=== PATIENT | female | born 1965 | race Caucasian/White ===

== ENCOUNTER 2024-05-27 11:47 | Inpatient (IN) ==
[2024-05-27] MEDS: Lactated Ringers 1000 ml BAG IV.FLUID IV ONE (13:01)
[2024-05-27] MEDS: Cefepime 2 GM in Dextrose 2 GM/50 ML BAG IV ONE (13:01)
[2024-05-27 13:08] LABS: ABS Basophils 0.1 10^3/uL (0.0-0.1); ABS Eosinophils 0.2 10^3/uL (0.0-0.5); ABS Lymphocytes 1.8 10^3/uL (1.0-4.8); ABS Monocytes 0.7 10^3/uL (0.0-0.9); ABS Neutrophils 10.2 10^3/uL (1.5-7.6); ABS Nucleated RBC 0.01 10^3/ul; Eosinophil % 1.7 %; Hematocrit 28.5 % (35-45); Hemoglobin 9.4 g/dL (11.5-14.3); Mean Corpuscular Hemoglobin 28.3 pg (27-33); Mean Corpuscular Volume 85.8 fL (80-97); Mean Platelet Volume 8.3 fL (7.5-11.2); Nucleated Red Blood Cells % 0.1 %/100WBC (0.0-0.8); Platelet Count 261 10^3/uL (150-450); Red Blood Count 3.32 10^6/uL (3.63-4.92); Red Cell Distribution Width 17.1 % (12-17); White Blood Count 13.1 10^3/uL (3.8-11.8)
[2024-05-27 13:18] LABS: Activated Partial Thrombo Time 30.9 seconds (26.0-38.0); INR 1.23 (0.83-1.13)
[2024-05-27 14:00] LABS: Albumin 2.9 g/dL (3.2-5.2); Albumin/Globulin Ratio 0.7 (1-3); C Reactive Protein 181.62 mg/L (<8.01); Calcium 8.8 mg/dL (8.6-10.3); Creatinine, Serum 1.09 mg/dL (0.51-0.95); Potassium 3.8 mmol/L (3.5-5.0); Total Bilirubin 0.5 mg/dL (0.2-1.0); Total Protein 6.9 g/dL (6.4-8.9); eGFR CKD-EPI 59.6 (>60)
[2024-05-27 14:33] LABS: High Sensitivity Troponin 1 Hr 10 pg/mL (<15)
[2024-05-27] MEDS ORDERED: Zosyn per Pharmacy NOTE FOLLOW UP SCH (17:00)
[2024-05-27] MEDS: Piperacillin/Tazobac 3.375 BAG 3.375 GM/100 ML BAG IV ONE (17:28)
[2024-05-27] MEDS ORDERED: Ondansetron ODT 4 mg TAB 4 MG TAB PO PRN (18:27)
[2024-05-27] MEDS ORDERED: NF: Trospium 20 mg TAB (NF) PO PRN (18:27)
[2024-05-27] MEDS: Senna TAB 8.6 mg TAB PO SCH (22:44)
[2024-05-27] MEDS: Heparin 5000 UNITS/ML 1 mL VIAL SUBCUT SCH (22:45)
[2024-05-27] MEDS: ZOSYN 3.375 GM Q8H per EXTENDED INFUSION IV SCH (23:21)
[2024-05-28 03:05] LABS: Osmolality Serum 269 mOsm/kg (275-295)
[2024-05-28 03:06] LABS: Urine Osmo 312 mOsm/kg (150-1150)
[2024-05-28] MEDS: ZOSYN 3.375 GM Q8H per EXTENDED INFUSION IV SCH (06:22)
[2024-05-28] MEDS: Lidocaine PATCH 5% PATCH TRANSDERM SCH (08:58)
[2024-05-28] MEDS: Venlafaxine XR 75 mg PO SCH (09:09)
[2024-05-28 12:44] LABS: ABS Basophils 0.1 10^3/uL (0.0-0.1); ABS Eosinophils 0.3 10^3/uL (0.0-0.5); ABS Lymphocytes 1.5 10^3/uL (1.0-4.8); ABS Monocytes 0.5 10^3/uL (0.0-0.9); Eosinophil % 2.4 %; Hematocrit 26.4 % (35-45); Hemoglobin 8.6 g/dL (11.5-14.3); Lymphocyte % 11.9 %; Mean Corpuscular Hemoglobin 28.3 pg (27-33); Mean Corpuscular Hgb Conc 32.6 g/dL (31-36); Mean Corpuscular Volume 86.6 fL (80-97); Mean Platelet Volume 8.4 fL (7.5-11.2); Platelet Count 231 10^3/uL (150-450); Red Blood Count 3.04 10^6/uL (3.63-4.92); Red Cell Distribution Width 17.3 % (12-17); White Blood Count 12.3 10^3/uL (3.8-11.8)
[2024-05-28 13:11] LABS: % Iron Saturation 12 % (15-55); .Transferrin 123 mg/dL (203-362); Anion Gap 8 mmol/L (2-16); Blood Urea Nitrogen 16 mg/dL (6-24); CO2 Carbon Dioxide 24 mmol/L (22-32); Calcium 8.4 mg/dL (8.6-10.3); Chloride 100 mmol/L (101-111); Creatinine, Serum 1.12 mg/dL (0.51-0.95); Glucose 109 mg/dL (70-100); Iron < 20 ug/dL (50-212); Magnesium 1.5 mg/dL (1.9-2.7); Phosphorus 4.5 mg/dL (2.5-5.0); Potassium 3.7 mmol/L (3.5-5.0); Sodium 132 mmol/L (135-145); Total Iron Binding Capacity 172 mcg/dL (250-450); Unsaturated Iron Binding 152 ug/dL; eGFR CKD-EPI 57.7 (>60)
[2024-05-28 13:32] LABS: Ferritin 949.2 ng/mL (11-307)
[2024-05-28 13:35] LABS: Folate 10.99 ng/mL (5.90-24.80)
[2024-05-28 13:36] LABS: Vitamin B12 658 pg/mL (180-914)
[2024-05-28] MEDS: Magnesium Sulfate 2 gm BAG 2 GM/50 ML BAG IVPB ONE (16:47)
[2024-05-28 16:58] LABS: Urine Appearance Clear; Urine Bacteria 1+ /HPF (Absent); Urine Bilirubin Negative (Negative); Urine Blood 3+ (Negative); Urine Glucose Negative (Negative); Urine Ketones Negative (Negative); Urine Nitrite Negative (Negative); Urine Protein 1+ (>=30 mg/dL) (Negative); Urine Red Blood Cell 3+(>10/hpf) /HPF (0-Trace); Urine Specific Gravity >1.050 (1.002-1.030); Urine Urobilinogen Negative (Negative); Urine White Blood Cell 3+(>20/hpf) /HPF (0-Trace); Urine pH 6.5 (5.0-8.0)
[2024-05-28 17:00] LABS: Urine Appearance Clear; Urine Bacteria Absent /HPF (Absent); Urine Bilirubin Negative (Negative); Urine Blood 3+ (Negative); Urine Glucose Negative (Negative); Urine Ketones Negative (Negative); Urine Nitrite Negative (Negative); Urine Protein 2+ (>=100 mg/dL) (Negative); Urine Red Blood Cell 3+(>10/hpf) /HPF (0-Trace); Urine Specific Gravity >1.050 (1.002-1.030); Urine Urobilinogen Negative (Negative); Urine White Blood Cell 1+(6-10/hpf) /HPF (0-Trace)
[2024-05-28] MEDS ORDERED: Enoxaparin 60 MG/0.6 ML SYR SUBCUT SCH (17:00)
[2024-05-28] MEDS: Magnesium Sulfate IV 1GM/100ML 1 GM/100 ML BAG IV ONE (17:59)
[2024-05-28 18:34] LABS: Urine Color Light-Red
[2024-05-28 18:34] LABS: Urine Color Light-Red
[2024-05-28] MEDS: fentaNYL 250 mcg/5 ml 50 MCG/ML 5 ml VIAL (250 MCG) ONE (19:57)
[2024-05-29] MEDS: Enoxaparin 60 MG/0.6 ML SYR SUBCUT SCH (06:09)
[2024-05-29 06:34] LABS: ABS Eosinophils 0.3 10^3/uL (0.0-0.5); ABS Lymphocytes 1.6 10^3/uL (1.0-4.8); ABS Monocytes 0.5 10^3/uL (0.0-0.9); ABS Neutrophils 8.6 10^3/uL (1.5-7.6); ABS Nucleated RBC 0.01 10^3/ul; Eosinophil % 2.7 %; Hematocrit 24.7 % (35-45); Hemoglobin 8.2 g/dL (11.5-14.3); Lymphocyte % 14.7 %; Mean Corpuscular Hemoglobin 28.7 pg (27-33); Mean Corpuscular Hgb Conc 33.2 g/dL (31-36); Mean Corpuscular Volume 86.4 fL (80-97); Mean Platelet Volume 8.3 fL (7.5-11.2); Platelet Count 231 10^3/uL (150-450); Red Blood Count 2.86 10^6/uL (3.63-4.92); Red Cell Distribution Width 17.7 % (12-17); White Blood Count 11.1 10^3/uL (3.8-11.8)
[2024-05-29 06:41] LABS: INR 1.29 (0.83-1.13)
[2024-05-29 06:50] LABS: Calcium 8.1 mg/dL (8.6-10.3); Creatinine, Serum 1.07 mg/dL (0.51-0.95); Magnesium 2.2 mg/dL (1.9-2.7); Potassium 3.8 mmol/L (3.5-5.0)
[2024-05-29] MEDS: Acetaminophen IV 1 GM/100ML 1,000 MG/100 ML BAG IV PRN (13:02)
[2024-05-30 07:19] LABS: Creatinine, Serum 1.2 mg/dL (0.51-0.95); Potassium 4.2 mmol/L (3.5-5.0); eGFR CKD-EPI 53.1 (>60)
[2024-05-30 07:29] LABS: ABS Basophils 0.1 10^3/uL (0.0-0.1); ABS Eosinophils 0.4 10^3/uL (0.0-0.5); ABS Lymphocytes 1.9 10^3/uL (1.0-4.8); ABS Monocytes 0.4 10^3/uL (0.0-0.9); ABS Neutrophils 7.2 10^3/uL (1.5-7.6); ABS Nucleated RBC 0.01 10^3/ul; Eosinophil % 4.1 %; Hematocrit 23.2 % (35-45); Hemoglobin 7.8 g/dL (11.5-14.3); Mean Corpuscular Hemoglobin 29.5 pg (27-33); Mean Corpuscular Hgb Conc 33.8 g/dL (31-36); Mean Corpuscular Volume 87.3 fL (80-97); Mean Platelet Volume 8.7 fL (7.5-11.2); Nucleated Red Blood Cells % 0.1 %/100WBC (0.0-0.8); Platelet Count 243 10^3/uL (150-450); Red Blood Count 2.66 10^6/uL (3.63-4.92); Red Cell Distribution Width 17.8 % (12-17); White Blood Count 10.1 10^3/uL (3.8-11.8)
[2024-05-30 13:42] VITALS: BP 110/70
== END 2024-05-30 13:56 | disposition home health service (06) | DRG 720 ==
LOC: ED 11:47 → SUATTDRO 19:02 → EDHOLD 19:02 → MEDTELE 05-28 04:21
PROVIDERS: ADMIT Internal Medicine; ATTEND Hospitalist

== ENCOUNTER 2024-06-14 18:49 | Inpatient (IN) ==
[2024-06-14 20:46] LABS: Urine Appearance Turbid; Urine Bilirubin Negative (Negative); Urine Blood 1+ (Negative); Urine Color Yellow; Urine Glucose Negative (Negative); Urine Ketones Negative (Negative); Urine Nitrite 1+ (Negative); Urine Protein 2+ (>=100 mg/dL) (Negative); Urine Specific Gravity 1.014 (1.002-1.030); Urine Urobilinogen Negative (Negative); Urine pH 7.5 (5.0-8.0)
[2024-06-14 20:47] LABS: ABS Basophils 0.1 10^3/uL (0.0-0.1); ABS Eosinophils 0.2 10^3/uL (0.0-0.5); ABS Lymphocytes 2.2 10^3/uL (1.0-4.8); ABS Monocytes 1.2 10^3/uL (0.0-0.9); ABS Nucleated RBC 0.01 10^3/ul; Eosinophil % 1.2 %; Hematocrit 27.2 % (35-45); Lymphocyte % 16.4 %; Mean Corpuscular Hemoglobin 28.7 pg (27-33); Mean Corpuscular Hgb Conc 33.2 g/dL (31-36); Mean Corpuscular Volume 86.3 fL (80-97); Mean Platelet Volume 7.1 fL (7.5-11.2); Platelet Count 415 10^3/uL (150-450); Red Blood Count 3.15 10^6/uL (3.63-4.92); Red Cell Distribution Width 19.2 % (12-17); White Blood Count 13.7 10^3/uL (3.8-11.8)
[2024-06-14] MEDS: Lactated Ringers 1000 ml BAG 1,000 ML IV ONE ×2 (20:48→22:10)
[2024-06-14 20:52] LABS: Urine Bacteria Absent /HPF (Absent); Urine Red Blood Cell 3+(>10/hpf) /HPF (0-Trace); Urine White Blood Cell 3+(>20/hpf) /HPF (0-Trace)
[2024-06-14 21:07] LABS: Albumin 3.2 g/dL (3.2-5.2); Albumin/Globulin Ratio 0.8 (1-3); C Reactive Protein 359.43 mg/L (<8.01); Calcium 8.9 mg/dL (8.6-10.3); Creatinine, Serum 2.24 mg/dL (0.51-0.95); Globulin 3.9 g/dL (2-4); Potassium 4.3 mmol/L (3.5-5.0); Total Bilirubin 0.4 mg/dL (0.2-1.0); Total Protein 7.1 g/dL (6.4-8.9); eGFR CKD-EPI 25.1 (>60)
[2024-06-14 21:36] LABS: Activated Partial Thrombo Time 29.5 seconds (26.0-38.0); INR 1.24 (0.83-1.13)
[2024-06-14] MEDS: Cefepime 2 GM in Dextrose 2 GM/50 ML BAG IV ONE (22:07)
[2024-06-14 22:42] LABS: High Sensitivity Troponin 1 Hr 13 pg/mL (<15)
[2024-06-15] MEDS: Morphine 4 MG/ML VIAL (1 ml) IV ONE (00:10)
[2024-06-15] MEDS: Acetaminophen IV 1 GM/100ML 1,000 MG/100 ML BAG IV ONE (00:34)
[2024-06-15] MEDS ORDERED: Ondansetron ODT 4 mg TAB 4 MG TAB PO PRN (03:33)
[2024-06-15 04:51] LABS: Urine Osmo 237 mOsm/kg (150-1150)
[2024-06-15 04:52] LABS: Osmolality Serum 270 mOsm/kg (275-295)
[2024-06-15] MEDS ORDERED: TROSPIUM 20 MG PO PRN (06:14)
[2024-06-15 06:36] LABS: ABS Basophils 0.1 10^3/uL (0.0-0.1); ABS Eosinophils 0.3 10^3/uL (0.0-0.5); ABS Lymphocytes 2.2 10^3/uL (1.0-4.8); ABS Monocytes 1.1 10^3/uL (0.0-0.9); ABS Neutrophils 8.7 10^3/uL (1.5-7.6); ABS Nucleated RBC 0.02 10^3/ul; Eosinophil % 2.7 %; Hematocrit 25.7 % (35-45); Hemoglobin 8.6 g/dL (11.5-14.3); Lymphocyte % 17.5 %; Mean Corpuscular Hemoglobin 28.9 pg (27-33); Mean Corpuscular Hgb Conc 33.4 g/dL (31-36); Mean Corpuscular Volume 86.5 fL (80-97); Mean Platelet Volume 7.3 fL (7.5-11.2); Nucleated Red Blood Cells % 0.1 %/100WBC (0.0-0.8); Platelet Count 357 10^3/uL (150-450); Red Blood Count 2.97 10^6/uL (3.63-4.92); Red Cell Distribution Width 19.5 % (12-17); White Blood Count 12.3 10^3/uL (3.8-11.8)
[2024-06-15 07:00] LABS: Albumin 2.8 g/dL (3.2-5.2); Albumin/Globulin Ratio 0.8 (1-3); Creatinine, Serum 1.62 mg/dL (0.51-0.95); Globulin 3.4 g/dL (2-4); Potassium 4.4 mmol/L (3.5-5.0); Total Bilirubin 0.3 mg/dL (0.2-1.0); Total Protein 6.2 g/dL (6.4-8.9); eGFR CKD-EPI 37.1 (>60)
[2024-06-15] MEDS: Lidocaine PATCH 5% PATCH TRANSDERM SCH (07:15)
[2024-06-15] MEDS: Venlafaxine XR 75 mg PO SCH (08:08)
[2024-06-15] MEDS: Lactated Ringers 1000 ml BAG 500 ML IV ONE (08:09)
[2024-06-15] MEDS: Lactated Ringers 1000 ml BAG 1,000 ML IV SCH (08:50)
[2024-06-15] MEDS ORDERED: Lidocaine 2.5%/Prilocain 2.5% 5 GM TUBE TOPICAL PRN (09:00)
[2024-06-15] MEDS: Cefepime 1 GM in Dextrose 1 GM/50 ML BAG IV SCH (10:28)
[2024-06-15] MEDS ORDERED: Vancomycin per Pharmacy 1 EA NOTE FOLLOW UP PRN (11:11)
[2024-06-15] MEDS: Vancomycin 1,000 MG in NS 0.9% 250 ml 250 ML IVPB ONE (11:58)
[2024-06-15] MEDS: HYDROmorphone 0.5 MG/0.5 ML SYRINGE IV PRN (11:58)
[2024-06-15] MEDS: cefTRIAXone 2 gm/50 mL D5W 2 GM/50 ML BAG IV SCH (17:01)
[2024-06-15] MEDS: Senna TAB 8.6 mg TAB PO SCH (19:55)
[2024-06-16 08:26] LABS: ABS Basophils 0.1 10^3/uL (0.0-0.1); ABS Eosinophils 0.4 10^3/uL (0.0-0.5); ABS Lymphocytes 1.6 10^3/uL (1.0-4.8); ABS Neutrophils 6.5 10^3/uL (1.5-7.6); Eosinophil % 4.5 %; Hematocrit 24.9 % (35-45); Hemoglobin 8.5 g/dL (11.5-14.3); Mean Corpuscular Hemoglobin 29.5 pg (27-33); Mean Corpuscular Hgb Conc 34.1 g/dL (31-36); Mean Corpuscular Volume 86.5 fL (80-97); Mean Platelet Volume 7.4 fL (7.5-11.2); Platelet Count 338 10^3/uL (150-450); Red Blood Count 2.87 10^6/uL (3.63-4.92); Red Cell Distribution Width 19.6 % (12-17); White Blood Count 9.6 10^3/uL (3.8-11.8)
[2024-06-16 08:49] LABS: Calcium 8.6 mg/dL (8.6-10.3); Creatinine, Serum 1.42 mg/dL (0.51-0.95); Potassium 4.2 mmol/L (3.5-5.0); eGFR CKD-EPI 43.4 (>60)
[2024-06-16] MEDS: Vancomycin Random Level NOTE FOLLOW UP ONE (11:11)
[2024-06-16] MEDS: Lactated Ringers 1000 ml BAG 1,000 ML IV ONE (12:18)
[2024-06-16 16:14] LABS: Calcium 8.4 mg/dL (8.6-10.3); Creatinine, Serum 1.58 mg/dL (0.51-0.95); Potassium 4.7 mmol/L (3.5-5.0); eGFR CKD-EPI 38.2 (>60)
[2024-06-16 23:40] LABS: Calcium 8.3 mg/dL (8.6-10.3); Creatinine, Serum 1.47 mg/dL (0.51-0.95); Potassium 4.5 mmol/L (3.5-5.0); eGFR CKD-EPI 41.6 (>60)
[2024-06-17] MEDS: cefTRIAXone 2 gm/50 mL D5W 2 GM/50 ML BAG IV ONE (09:48)
[2024-06-17] MEDS: Lactated Ringers 1000 ml BAG 1,000 ML IV SCH (12:09)
[2024-06-17] MEDS: fentaNYL 250 mcg/5 ml 50 MCG/ML 5 ml VIAL (250 MCG) ONE (14:38)
[2024-06-17 16:05] LABS: ABS Eosinophils 0.4 10^3/uL (0.0-0.5); ABS Lymphocytes 2.6 10^3/uL (1.0-4.8); ABS Monocytes 0.7 10^3/uL (0.0-0.9); ABS Neutrophils 3.8 10^3/uL (1.5-7.6); Eosinophil % 5.3 %; Hematocrit 22.3 % (35-45); Hemoglobin 7.3 g/dL (11.5-14.3); Mean Corpuscular Hemoglobin 28.7 pg (27-33); Mean Platelet Volume 7.6 fL (7.5-11.2); Platelet Count 276 10^3/uL (150-450); Red Blood Count 2.56 10^6/uL (3.63-4.92); Red Cell Distribution Width 19.6 % (12-17); White Blood Count 7.5 10^3/uL (3.8-11.8)
[2024-06-17 16:28] LABS: Calcium 8.2 mg/dL (8.6-10.3); Creatinine, Serum 1.25 mg/dL (0.51-0.95); Magnesium 1.2 mg/dL (1.9-2.7); Potassium 4.8 mmol/L (3.5-5.0); eGFR CKD-EPI 50.6 (>60)
[2024-06-17 16:40] LABS: INR 1.04 (0.83-1.13)
[2024-06-17] MEDS: ceFAZolin 1 GM in Dextrose 1 GM/50 ML BAG IVPB SCH ×2 (17:45→23:52)
[2024-06-17] MEDS: Magnesium Sulf 4 GM/100 ML IV 4,000 MG/100 ML BAG IVPB ONE (20:16)
[2024-06-17 20:39] LABS: Hematocrit 21.5 % (35-45); Hemoglobin 7.3 g/dL (11.5-14.3)
[2024-06-17] MEDS: Morphine 2 MG/ML SYRINGE IV ONE (23:27)
[2024-06-18 06:39] LABS: ABS Basophils 0.1 10^3/uL (0.0-0.1); ABS Eosinophils 0.5 10^3/uL (0.0-0.5); ABS Lymphocytes 2.3 10^3/uL (1.0-4.8); ABS Monocytes 0.7 10^3/uL (0.0-0.9); ABS Neutrophils 5.1 10^3/uL (1.5-7.6); ABS Nucleated RBC 0.01 10^3/ul; Eosinophil % 6.1 %; Hematocrit 22.8 % (35-45); Hemoglobin 7.6 g/dL (11.5-14.3); Lymphocyte % 26.1 %; Mean Corpuscular Hemoglobin 29.1 pg (27-33); Mean Corpuscular Hgb Conc 33.4 g/dL (31-36); Mean Corpuscular Volume 87.1 fL (80-97); Mean Platelet Volume 7.5 fL (7.5-11.2); Nucleated Red Blood Cells % 0.1 %/100WBC (0.0-0.8); Platelet Count 303 10^3/uL (150-450); Red Blood Count 2.62 10^6/uL (3.63-4.92); Red Cell Distribution Width 19.4 % (12-17); White Blood Count 8.8 10^3/uL (3.8-11.8)
[2024-06-18 06:53] LABS: Calcium 8.7 mg/dL (8.6-10.3); Creatinine, Serum 1.24 mg/dL (0.51-0.95); Magnesium 2.5 mg/dL (1.9-2.7); Potassium 4.1 mmol/L (3.5-5.0); eGFR CKD-EPI 51.1 (>60)
[2024-06-19 14:48] VITALS: BP 131/77
[2024-06-19 15:15] LABS: Hematocrit 23.1 % (35-45); Hemoglobin 7.5 g/dL (11.5-14.3); Mean Corpuscular Hemoglobin 28.4 pg (27-33); Mean Corpuscular Hgb Conc 32.3 g/dL (31-36); Mean Platelet Volume 7.9 fL (7.5-11.2); Platelet Count 334 10^3/uL (150-450); Red Blood Count 2.63 10^6/uL (3.63-4.92); Red Cell Distribution Width 20.1 % (12-17); White Blood Count 8.7 10^3/uL (3.8-11.8)
[2024-06-19 15:24] LABS: Calcium 9.2 mg/dL (8.6-10.3); Creatinine, Serum 1.48 mg/dL (0.51-0.95); Magnesium 2.1 mg/dL (1.9-2.7); Potassium 4.3 mmol/L (3.5-5.0); eGFR CKD-EPI 41.3 (>60)
[2024-06-19 15:39] LABS: ABS Basophils 0.1 10^3/uL (0.0-0.1); ABS Eosinophils 0.5 10^3/uL (0.0-0.5); ABS Lymphocytes 2.6 10^3/uL (1.0-4.8); ABS Monocytes 0.8 10^3/uL (0.0-0.9); ABS Neutrophils 4.7 10^3/uL (1.5-7.6); ABS Nucleated RBC 0.01 10^3/ul; Eosinophil % 5.7 %; Nucleated Red Blood Cells % 0.1 %/100WBC (0.0-0.8)
[2024-06-19 15:40] LABS: RBC Morphology Normal (Normal); Smudge Cells Present
== END 2024-06-19 16:07 | disposition home or self-care (01) | DRG 720 ==
LOC: ED 18:49 → EDHOLD 18:49 → SUATTDRO 06-15 03:09 → MEDTELE 06-15 16:51
PROVIDERS: ADMIT Internal Medicine; ATTEND Hospitalist

== ENCOUNTER 2024-11-21 15:25 | Inpatient (IN) ==
[2024-11-21 17:41] LABS: ABS Basophils 0.1 10^3/uL (0.0-0.1); ABS Eosinophils 1.3 10^3/uL (0.0-0.5); ABS Lymphocytes 3.7 10^3/uL (1.0-4.8); ABS Monocytes 0.8 10^3/uL (0.0-0.9); ABS Neutrophils 2.6 10^3/uL (1.5-7.6); ABS Nucleated RBC 0.01 10^3/ul; Eosinophil % 15.3 %; Hematocrit 23.1 % (35-45); Hemoglobin 7.5 g/dL (11.5-14.3); Lymphocyte % 43.8 %; Mean Corpuscular Hemoglobin 29.2 pg (27-33); Mean Corpuscular Hgb Conc 32.4 g/dL (31-36); Mean Corpuscular Volume 90.1 fL (80-97); Mean Platelet Volume 8.3 fL (7.5-11.2); Nucleated Red Blood Cells % 0.1 %/100WBC (0.0-0.8); Platelet Count 472 10^3/uL (150-450); Red Blood Count 2.56 10^6/uL (3.63-4.92); Red Cell Distribution Width 16.2 % (12-17); White Blood Count 8.4 10^3/uL (3.8-11.8)
[2024-11-21 18:02] LABS: Urine Appearance Extra Turbid; Urine Bacteria Absent /HPF (Absent); Urine Bilirubin Negative (Negative); Urine Blood 3+ (Negative); Urine Glucose Negative (Negative); Urine Ketones Trace (Negative); Urine Nitrite Negative (Negative); Urine Protein 2+ (>=100 mg/dL) (Negative); Urine Red Blood Cell 3+(>10/hpf) /HPF (0-Trace); Urine Specific Gravity 1.016 (1.002-1.030); Urine Urobilinogen Negative (Negative); Urine White Blood Cell 1+(6-10/hpf) /HPF (0-Trace)
[2024-11-21 18:03] LABS: Urine Color Brown
[2024-11-21 18:46] LABS: C Reactive Protein 10.61 mg/L (<8.01); Creatinine, Serum 1.08 mg/dL (0.51-0.95); Potassium 4.8 mmol/L (3.5-5.0); eGFR CKD-EPI 59.9 (>60)
[2024-11-22] MEDS: NS 0.9% 1000 ml BAG 1,000 ML IV SCH (00:45)
[2024-11-22] MEDS: Pantoprazole VIAL 40 MG VIAL IV SCH (04:47)
[2024-11-22 05:26] LABS: Hematocrit 23.5 % (35-45); Hemoglobin 7.7 g/dL (11.5-14.3); Mean Corpuscular Hemoglobin 29.5 pg (27-33); Mean Corpuscular Hgb Conc 32.7 g/dL (31-36); Mean Corpuscular Volume 90.2 fL (80-97); Mean Platelet Volume 8.2 fL (7.5-11.2); Platelet Count 511 10^3/uL (150-450); Red Blood Count 2.61 10^6/uL (3.63-4.92); Red Cell Distribution Width 16.5 % (12-17)
[2024-11-22 05:38] LABS: Calcium 9.1 mg/dL (8.6-10.3); Potassium 4.9 mmol/L (3.5-5.0); eGFR CKD-EPI 65.7 (>60)
[2024-11-22 05:50] LABS: Urine Osmo 302 mOsm/kg (150-1150)
[2024-11-22 05:52] LABS: Magnesium 1.4 mg/dL (1.9-2.7)
[2024-11-22] MEDS: cefTRIAXone 1 gm/50 mL D5W 1 GM/50 ML BAG IV SCH (05:53)
[2024-11-22 07:53] LABS: Osmolality Serum 292 mOsm/kg (275-295)
[2024-11-22] MEDS: Magnesium Sulf 4 GM/100 ML IV 4,000 MG/100 ML BAG IVPB ONE (08:05)
[2024-11-22] MEDS ORDERED: Lactated Ringers 1000 ml BAG 1,000 ML IV SCH (09:00)
[2024-11-22 09:19] LABS: Ferritin 323.4 ng/mL (11-307)
[2024-11-22 09:22] LABS: Folate 7.83 ng/mL (5.90-24.80)
[2024-11-22] MEDS ORDERED: Propofol 10 MG/ML 20 ML BTL ONE (15:58)
[2024-11-22] MEDS ORDERED: Lidocaine 2% PF 5 ML VIAL ONE (15:58)
[2024-11-22 18:05] LABS: Hematocrit 22.8 % (35-45); Hemoglobin 7.4 g/dL (11.5-14.3)
[2024-11-22 18:38] LABS: Calcium 9.3 mg/dL (8.6-10.3); Creatinine, Serum 0.9 mg/dL (0.51-0.95); Magnesium 2.5 mg/dL (1.9-2.7); Potassium 4.6 mmol/L (3.5-5.0); eGFR CKD-EPI 74.6 (>60)
[2024-11-22] MEDS: Acetaminophen IV 1 GM/100ML 1,000 MG/100 ML BAG IV PRN (21:57)
[2024-11-23 00:45] LABS: Hematocrit 20.2 % (35-45); Hemoglobin 6.6 g/dL (11.5-14.3)
[2024-11-23 06:01] LABS: ABS Basophils 0.1 10^3/uL (0.0-0.1); ABS Eosinophils 1.7 10^3/uL (0.0-0.5); ABS Lymphocytes 3.1 10^3/uL (1.0-4.8); ABS Monocytes 0.6 10^3/uL (0.0-0.9); ABS Neutrophils 2.4 10^3/uL (1.5-7.6); Eosinophil % 21.7 %; Hematocrit 25.5 % (35-45); Hemoglobin 8.8 g/dL (11.5-14.3); Lymphocyte % 38.6 %; Mean Corpuscular Hemoglobin 30.3 pg (27-33); Mean Corpuscular Hgb Conc 34.6 g/dL (31-36); Mean Corpuscular Volume 87.7 fL (80-97); Mean Platelet Volume 7.9 fL (7.5-11.2); Nucleated Red Blood Cells % 0.1 %/100WBC (0.0-0.8); Platelet Count 463 10^3/uL (150-450); Red Blood Count 2.91 10^6/uL (3.63-4.92); Red Cell Distribution Width 16.7 % (12-17)
[2024-11-23 07:27] LABS: Creatinine, Serum 0.59 mg/dL (0.51-0.95); Potassium 3.2 mmol/L (3.5-5.0); eGFR CKD-EPI 105.1 (>60)
[2024-11-23] MEDS: Potassium Chlor 20 meq TAB.ER PO ONE (07:47)
[2024-11-23] MEDS: KCL 20 MEQ/100 ML IVPREMIX 20 MEQ/100 ML BAG IV SCH (08:04)
[2024-11-23] MEDS: Venlafaxine XR 75 mg PO SCH (08:09)
[2024-11-23 08:42] LABS: Calcium 9.3 mg/dL (8.6-10.3); Creatinine, Serum 0.96 mg/dL (0.51-0.95); Potassium 4.6 mmol/L (3.5-5.0)
[2024-11-23 14:49] LABS: Hematocrit 27.2 % (35-45); Hemoglobin 9.4 g/dL (11.5-14.3)
[2024-11-24 06:55] LABS: ABS Basophils 0.1 10^3/uL (0.0-0.1); ABS Eosinophils 1.6 10^3/uL (0.0-0.5); ABS Monocytes 0.7 10^3/uL (0.0-0.9); ABS Neutrophils 2.7 10^3/uL (1.5-7.6); Eosinophil % 19.3 %; Hematocrit 27.9 % (35-45); Hemoglobin 9.8 g/dL (11.5-14.3); Lymphocyte % 37.2 %; Mean Corpuscular Hemoglobin 30.3 pg (27-33); Mean Corpuscular Hgb Conc 35.2 g/dL (31-36); Mean Corpuscular Volume 86.1 fL (80-97); Mean Platelet Volume 7.8 fL (7.5-11.2); Platelet Count 484 10^3/uL (150-450); Red Blood Count 3.24 10^6/uL (3.63-4.92); Red Cell Distribution Width 16.9 % (12-17); White Blood Count 8.2 10^3/uL (3.8-11.8)
[2024-11-24 07:44] LABS: Calcium 9.5 mg/dL (8.6-10.3); Creatinine, Serum 0.83 mg/dL (0.51-0.95); Potassium 4.6 mmol/L (3.5-5.0); eGFR CKD-EPI 82.2 (>60)
[2024-11-25 06:07] LABS: Hematocrit 28.9 % (35-45); Hemoglobin 9.9 g/dL (11.5-14.3); Mean Corpuscular Hemoglobin 29.7 pg (27-33); Mean Corpuscular Hgb Conc 34.1 g/dL (31-36); Mean Corpuscular Volume 87.2 fL (80-97); Mean Platelet Volume 7.8 fL (7.5-11.2); Platelet Count 500 10^3/uL (150-450); Red Blood Count 3.32 10^6/uL (3.63-4.92); Red Cell Distribution Width 16.9 % (12-17); White Blood Count 7.7 10^3/uL (3.8-11.8)
[2024-11-25 14:27] VITALS: BP 111/78
== END 2024-11-25 16:20 | disposition swing bed (61) | DRG 241 ==
LOC: ED 15:25 → EDHOLD 15:25 → SUATTDRO 19:09 → MED 20:14
PROVIDERS: ADMIT Internal Medicine; ATTEND Hospitalist
PROC: O.GIEGD (2024-11-22 16:50)